=== PATIENT | male | born 1995 | race Caucasian/White ===

== ENCOUNTER 2019-11-17 10:44 | Emergency (ER) | payer OTHER ==
[~2019-11-17] VITALS: Ht 170.2 cm; Wt 80.0 kg
[~2019-11-17 10:44] MED LIST: CARB300C9 PO; LORA10TA7 PO; MONT10TA24 PO; TOPA200 PO
[2019-11-17] MEDS ORDERED: LORAZEPAM 2MG/ML CPJ IM STA ×2 (13:42→16:15)
[2019-11-17] MEDS ORDERED: HALOPERIDOL LACTATE 5MG/ML VIAL IM ONE ×3 (13:45→16:15)
[2019-11-17 17:29] VITALS: BP 107/61
== END 2019-11-17 19:09 | disposition home or self-care (01) ==
LOC: ER 10:44
DX: S09.90XA Unspecified injury of head, initial encounter (principal); R45.851 Suicidal ideations; F79 Unspecified intellectual disabilities; Z79.899 Other long term (current) drug therapy; W18.30XA Fall on same level, unspecified, initial encounter; X58.XXXA Exposure to other specified factors, initial encounter; Y93.89 Activity, other specified; Y92.89 Other specified places as the place of occurrence of the external cause; Y99.8 Other external cause status
CPT/HCPCS: 70450; 96372; 99284; J1630; J2060; Z7610

== ENCOUNTER 2021-08-14 10:00 | Emergency (ER) | payer OTHER ==
[~2021-08-14] VITALS: Ht 165.1 cm; Wt 73.0 kg
[~2021-08-14 10:00] MED LIST changes: -MONT10TA24 PO; +MONT10TA32 PO
[2021-08-14 10:20] VITALS: BP 147/84
[2021-08-14] MEDS ORDERED: LEVETIRACETAM 1000MG PREMIX 100 ML IV ONE (10:30)
[2021-08-14] MEDS ORDERED: HALOPERIDOL LACTATE 5MG/ML VIAL IM ONE (11:00)
[2021-08-14] MEDS ORDERED: LORAZEPAM 2MG/ML CPJ IM STA (11:31)
[2021-08-14 13:02] LABS: CHLORIDE 111 mEq/L (98-107)
[2021-08-14 13:06] LABS: ETHANOL BLOOD < 10 mg/dL
[2021-08-14 13:09] LABS: CARBAMAZEPINE 3.4 ug/mL (4-12)
== END 2021-08-14 14:07 | disposition home or self-care (01) ==
LOC: ER 10:00
DX: G40.909 Epilepsy, unspecified, not intractable, without status epilepticus (principal); H54.7 Unspecified visual loss; H91.90 Unspecified hearing loss, unspecified ear; R62.50 Unspecified lack of expected normal physiological development in childhood
CPT/HCPCS: 36415; 70450; 71045; 80053; 80156; 80320; 96374; 96375; 99285; J1630; J2060; G0480

== ENCOUNTER 2022-12-25 09:58 | Emergency (ER) | payer OTHER ==
[~2022-12-25] VITALS: Ht 175.3 cm; Wt 85.0 kg
[~2022-12-25 09:58] MED LIST changes: +MONT-39 PO; -MONT10TA32 PO
[2022-12-25] MEDS ORDERED: LOPE2CAP MT ×4 (10:46→13:05)
[2022-12-25 11:37] VITALS: BP 121/72
== END 2022-12-25 11:38 | disposition home or self-care (01) ==
LOC: ER 09:58
DX: R19.7 Diarrhea, unspecified (principal); Z86.59 Personal history of other mental and behavioral disorders; Z98.890 Other specified postprocedural states
CPT/HCPCS: 99282